=== PATIENT | female | born 1995 | race Caucasian/White ===

== ENCOUNTER 2020-10-21 08:18 | Emergency (ER) | payer OTHER ==
[~2020-10-21] VITALS: Ht 162.6 cm; Wt 98.0 kg
[~2020-10-21 08:18] MED LIST: APAP500 PO; BACTRIM DS TAB1 EACH PO; CELEXA 20 MG TA20 M1 PO; DERMOPLAST SPRA56 ML; HYDROCORTISONE30 G9 RE; HYDROCORTISONE3011 TP; IBUPROFEN 800800 M1 PO; LANOLIN56 GM; MACROBID 100 M100 M1 PO; NORCO 5-325 TA1 EACH PO; PRENATAL COMPL1 EACH PO; SEROQUEL; TUCKS MEDICATE1 EAC1; ZOFRAN4 MG PO
[2020-10-21 09:39] LABS: ABSOLUTE NEUTROPHILS 5.9 thou/uL (1.4-8.2); BASOPHILS 0.6 % (0.0-2.0); EOSINOPHILS 3.8 % (0.0-3.0); HEMOGLOBIN 14.2 gm/dL (12.0-15.0); LYMPHOCYTES 23.3 % (24.0-44.0); MCH 31.5 pg (26.0-34.0); MCHC 34.6 g/dL (28.0-37.0); MCV 91.1 fL (80.0-100.0); MONOCYTES 5.1 % (1.0-8.0); PLATELET COUNT 296 thou/uL (150-400); POLYS 67.2 % (36.0-66.0); RBC 4.51 mil/uL (4.20-5.00); WBC 8.7 thou/uL (4.0-11.0)
[2020-10-21 09:48] LABS: ANION GAP 9 mmol/L (7-16); BUN 6 mg/dL (7-18); CALCIUM 9.1 mg/dL (8.5-10.1); CHLORIDE 105 mmol/L (98-107); CO2 27 mmol/L (21-32); CREATININE 0.8 mg/dL (0.6-1.0); GLUCOSE 91 mg/dL (74-106); POTASSIUM 4.2 mmol/L (3.5-5.1); SODIUM 141 mmol/L (136-145)
[2020-10-21 09:58] LABS: ALBUMIN 3.7 g/dL (3.4-5.0); LIPASE 76 U/L (73-393); SGOT 32 U/L (15-37); SGPT 49 U/L (14-59); TOTAL BILIRUBIN 0.3 mg/dL (0.2-1.0); TOTAL PROTEIN 8.4 g/dL (6.4-8.2); TROPONIN-I <0.06 ng/mL (<0.06)
[2020-10-21 10:42] LABS: URINE BILIRUBIN NEGATIVE (Negative); URINE BLOOD NEGATIVE (Negative); URINE CLARITY CLEAR; URINE COLOR YELLOW; URINE GLUCOSE-RANDOM* NEGATIVE (Negative); URINE KETONES NEGATIVE (Negative); URINE LEUKOCYTES-REFLEX NEGATIVE (Negative); URINE NITRITE-REFLEX NEGATIVE (Negative); URINE PROTEIN (DIPSTICK) NEGATIVE (Negative); URINE SPECIFIC GRAVITY 1.015 (1.005-1.035); URINE UROBILINOGEN 0.2 E.U./dl (0.2-1.0)
--- NOTE | 2020-10-21 10:47 | EKG ---
[address] [address] ELECTROCARDIOGRAM REPORT Name: LEIALEONIDES L [facility] #[id number] Admission: 10/21/20 Attend Phys: Discharge: Date of : [birth year] Report #: [id number] [facility] ED Test Date: 2020-10-21 Test Time: 08:32:23 Pat Name: LEONIDES DUPREE Department: Room: Gender: F Relief Manager: EVIE : 1995 Requested By: Krzysztof Monroe Order Number: [id number] MD: Mamadou Smyth Measurements Intervals [place] Rate: 76 P: 28 GA: 196 QRS: 50 QRSD: 99 T: 37 QT: 360 QTc: 405 Interpretive Statements Sinus rhythm No previous ECG available for comparison Electronically Signed On 10-21-2020 10:47:11 CDT by Mamadou Smyth [email or web address] <ELECTRONICALLY SIGNED> By: Mamadou Smyth MD, [facility] 10/21/20 1047 0832 0832 Mamadou Smyth MD, FACC /EPI
[2020-10-21] MEDS ORDERED: FLEXERIL PO (11:54)
[2020-10-21] MEDS ORDERED: TORADOL 10 MG T10 MG PO (11:54)
[2020-10-21 12:12] VITALS: BP 121/67
== END 2020-10-21 12:14 | disposition home or self-care (01) ==
LOC: ER 08:18
PROVIDERS: Emergency Medicine
DX: S23.3XXA Sprain of ligaments of thoracic spine, initial encounter (principal); S20.219A Contusion of unspecified front wall of thorax, initial encounter; S40.011A Contusion of right shoulder, initial encounter; F17.210 Nicotine dependence, cigarettes, uncomplicated; Z91.040 Latex allergy status; W11.XXXA Fall on and from ladder, initial encounter; Y93.89 Activity, other specified; Y92.89 Other specified places as the place of occurrence of the external cause; Y99.8 Other external cause status